=== PATIENT | male | born 1955 | race Caucasian/White ===

== ENCOUNTER → 2023-07-11 11:09 | Outpatient (BNVA) | payer MEDICARE, OTHER, SELFPAY | PROVIDERS: Family Provider Electrodiagnostic Medicine; PCP Electrodiagnostic Medicine; Visit Provider Family Medicine | DX: R60.0 Localized edema (principal); M10.9 Gout, unspecified; I10 Essential (primary) hypertension | CPT/HCPCS: 80053; 80061; 81000; 84439; 84443; 84550; 85025 ==

== ENCOUNTER 2023-07-24 09:29 | Outpatient (CLI) | payer MEDICARE, SELFPAY ==
--- NOTE | 2023-07-24 09:15 | USCV_ITS ---
Neymar Osborne (Tom Bean) Age: 68 Gender: M : 1955 Exam Date: 07/24/2023 09:52 Ordering Phys: Pavan Alcantar MD Technologist: GALILEA [place] [facility] [place]: EDE[place] BP: 136 / 90 HR: 105 Rhythm: Sinus Technical Quality: Poor because of body habitus MEASUREMENTS (Male / Female) Normal Values 2D ECHO LVOT Diameter 2.0 cm LV Ejection Fraction MOD 2C 41.7 % LV Ejection Fraction 2C AL 46.2 % LA Diameter 3.7 cm LA Width 3.4 cm LA Height 4.7 cm RA Width 3.3 cm RA Height 4.8 cm Aorta at Sinotubular Diameter 2.6 cm IVC Diameter 1.7 cm M-MODE Aortic Annulus Diameter 3.4 cm LA Ao Ratio MM 1.1 MV E Point Septal Separation 0.4 cm DOPPLER AV Peak Velocity 143.0 cm/s LVOT Peak Velocity 130.0 cm/s AV Area Cont Eq vti 2.6 cm squared AV Area Cont Eq pk 2.9 cm squared MV Peak Velocity 182.0 cm/s MV Area PHT 5.9 cm squared Mitral E to A Ratio 0.7 MV E' Velocity 43.6 cm/s Mitral E to MV E' Ratio 11.6 Mitral E to LV E' Lateral Ratio 8.6 Mitral E to LV E' Septal Ratio 17.4 TR Peak Velocity 157.3 cm/s TR Peak Gradient 9.9 mmHg TR Mean Velocity 127.8 cm/s TR Mean Gradient 6.7 mmHg TR Velocity Time Integral 35.7 cm TV Peak E Velocity 49.0 cm/s Right Atrial Pressure 3.0 mmHg Pulmonary Artery Systolic Pressu 12.9 mmHg PV Peak Velocity 134.0 cm/s RV Acceleration Time 0.1 s RV Ejection Time 0.3 s RV AcT/ET 0.4 FINDINGS Left Ventricle Normal left ventricular size, systolic function and wall thickness, with no regional wall motion abnormalities. Right Ventricle Normal right ventricular size and systolic function. Right Atrium Normal right atrial size. Left Atrium Normal left atrial size. Mitral Valve Thickened mitral valve. Trace mitral valve regurgitation. Aortic Valve Thickened aortic valve. No aortic valve stenosis. No aortic valve regurgitation. Tricuspid Valve Tricuspid valve not well visualized. Mild tricuspid valve regurgitation. Pulmonic Valve Pulmonic valve not well visualized. Mild pulmonary valve regurgitation. Pericardium No pericardial effusion. Aorta Normal size aortic root and proximal ascending aorta. IVC Normal IVC dimension with >50% respiratory change of the inferior vena cava. CONCLUSIONS Technically difficult study. Poor quality images. Patient refused contrast. 1. LV functions appear to be normal. LVEF 60%. 2. Although valvular structures not well-seen however on Doppler study no significant functional abnormality noted. 3. RV function and pulmonary pressures appear to be normal. Richard Tatum MD (Electronically Signed) Final Date: 24 July 2023 15:06 S
== END 2023-07-24 09:30 | disposition home or self-care (01) ==
LOC: RAD 09:29
PROVIDERS: Family Provider Electrodiagnostic Medicine; PCP Electrodiagnostic Medicine; Visit Provider Family Medicine
DX: R60.0 Localized edema (principal); I10 Essential (primary) hypertension; I34.0 Nonrheumatic mitral (valve) insufficiency; I37.1 Nonrheumatic pulmonary valve insufficiency
CPT/HCPCS: 93306

== ENCOUNTER → 2024-02-20 11:40 | Outpatient (BNVA) | payer MEDICARE, OTHER, SELFPAY | PROVIDERS: Family Provider Electrodiagnostic Medicine; PCP Family Medicine; Visit Provider Family Medicine | DX: I10 Essential (primary) hypertension (principal); M1A.2710 Drug-induced chronic gout, right ankle and foot, without tophus (tophi); E78.5 Hyperlipidemia, unspecified | CPT/HCPCS: 80053; 80061; 84550 ==

== ENCOUNTER → 2024-09-22 10:29 | Outpatient (BNVA) | payer MEDICARE, OTHER, SELFPAY | PROVIDERS: Family Provider Electrodiagnostic Medicine; PCP Family Medicine; Visit Provider Family Medicine | DX: E78.2 Mixed hyperlipidemia (principal) | CPT/HCPCS: 80053; 80061; 85025 ==

== ENCOUNTER 2024-10-16 20:52 | Inpatient (IN) | payer MEDICARE, OTHER, SELFPAY ==
[2024-10-16] VITALS (13 sets, daily range): BP systolic 142–171; BP diastolic 77–109; PULSE 104–128; RESP 16–31; TEMP 36.9; O2SAT 91–95; BMI 35.5
--- NOTE | 2024-10-16 21:00 | ECG_ITS ---
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1955 Requested By: Fernando Calderon Order Number: [id number] Reading MD: DAVIS BURNS Measurements Intervals [place] Rate: 114 P: 37 OR: 198 QRS: 36 QRSD: 90 T: 28 QT: 310 QTc: 429 Interpretive Statements SINUS TACHYCARDIA WITH OCCASIONAL SUPRAVENTRICULAR PREMATURE COMPLEXES POSSIBLE LEFT ATRIAL ENLARGEMENT [-0.1mV P-WAVE IN V1/V2] POSSIBLE RIGHT VENTRICULAR CONDUCTION DELAY [RSR (QR) IN V1/V2] NONSPECIFIC ST & T-WAVE ABNORMALITY ABNORMAL RHYTHM ECG No previous ECG available for comparison Electronically Signed On 10-17-2024 19:16:25 TRANSLITERATOR by DAVIS BURNS [email or web address]
--- NOTE | 2024-10-16 21:10 | XRR_ITS ---
PROCEDURE INFORMATION: Exam: XR Chest Exam date and time: 10/16/2024 9:41 PM Age: 69 years old Clinical indication: Shortness of breath; C/O SOB TECHNIQUE: Imaging protocol: Radiologic exam of the chest. Views: 1 view. COMPARISON: No relevant prior studies available. FINDINGS: Lungs: Mild patchy bibasilar opacities especially in the left lung base, likely due to atelectatic change or less likely pneumonitis. No focal consolidation otherwise. Pleural spaces: Unremarkable. No pleural effusion. No pneumothorax. Heart/Mediastinum: Cardiac silhouette is magnified by portable technique, likely borderline enlarged. Bones/joints: Unremarkable. XR/XR chest 1V portable [id number] IMPRESSION: Probable mild cardiomegaly without overt CHF. Mild left basilar opacity due to atelectasis versus pneumonitis in the appropriate clinical setting.
[2024-10-16 21:32] LABS: Basophils % 0.1 %; Eosinophils # 0.1 10^3/uL (0.0-0.8); Eosinophils % 0.9 %; Hematocrit 37.6 % (37-53); Lymphocytes % 5.9 %; Mean Corpuscular HGB Conc 37.2 g/dL (30-55); Mean Corpuscular Hemoglobin 32.1 pg (27-33); Mean Corpuscular Volume 86.2 fl (82-101); Mean Platelet Volume 9.3 fL (7.4-10.4); Monocytes # 0.7 10^3/uL (0.2-0.9); Monocytes % 4.4 %; Neutrophils % 88.4 %; Nucleated Red Blood Cells % 0 %; Platelet Count 416 10^3/cmm (157-399); Red Blood Count 4.36 10^6/uL (3.85-5.65); Red Cell Distribution Width 12.3 % (12.1-15.1); White Blood Count 16.28 10^3/uL (3.29-11.43)
[2024-10-16 21:43] LABS: D Dimer 0.28 ug/mLFEU (0-0.59)
[2024-10-16 21:50] LABS: Alanine Aminotransferase 14 U/L (0-41); Albumin Level 4.2 g/dL (3.5-5.2); Alkaline Phosphatase 148 U/L (40-130); Anion Gap 23.2 (5-19); Aspartate Amino Transferase 16 U/L (0-40); Blood Urea Nitrogen 10 mg/dL (8-23); Calcium 9.4 mg/dL (8.5-10.5); Carbon Dioxide 23 mmol/L (22-29); Chloride 71 mmol/L (98-107); Creatinine Clr Calc Pharmacy 95.0299; Glomerular Filtration Rate 111.5 mL/min (90-130); Glucose 97 mg/dL (65-115); Osmolality Calculated 237 mOsm/kg (285-295); Potassium 3.2 mmol/L (3.5-5.1); Total Bilirubin 1.1 mg/dL (0.15-1.2); Total Protein 7.2 g/dL (6.6-8.7); Troponin(5th) Baseline 20 ng/L (0-15)
[2024-10-16 21:54] LABS: Sodium 114 mmol/L (136-145)
[2024-10-16 22:09] LABS: NT Pro B Type Natriuretic Pept 297 pg/mL (0-125)
[2024-10-16 22:34] LABS: Influenza A NEGATIVE (Negative); Influenza B NEGATIVE (Negative); Respiratory Syncytial Virus Ce NEGATIVE (Negative); SARS-CoV-2 PCR NEGATIVE (Negative)
[2024-10-16 22:46] LABS: Sodium 114 mmol/L (136-145)
--- NOTE | 2024-10-16 23:02 | PM.HP ---
Providers/Chief Complaint Primary Care Provider: Pavan Alcantar MD Chief Complaint: SOB History of Present Illness Neymar Osborne (Casey) is a 69 year old male with a past medical history significant for insomnia, benign prostatic hypertrophy, hyperlipidemia, marijuana use, alcohol use disorder with abuse, dyslipidemia, and multiple other comorbidities who presents to the emergency department with shortness of breath, generalized malaise and weakness. Patient reports symptoms for 2 to 3 days. Exertion worsens symptoms. Rest improves. In the emergency department, patient was found to have severe hyponatremia with sodium of 114. Reports that he does take trazodone, Paxil, hydrochlorothiazide and Lasix. Reports decreased oral intake. Reports he drinks about 6 beers per day. Review of Systems Narrative: A complete review of systems was obtained and is negative except as stated in HPI. Medications/Allergies Home Medications ?Medication ?Instructions ?Recorded ?Confirmed ?Last Taken ?Type atorvastatin 40 mg tablet (Lipitor) 40 mg PO DAILY #90 tabs 01/31/24 09/22/24 Unknown Rx furosemide 40 mg tablet (Lasix) 40 mg PO QAM #90 tabs 01/31/24 09/22/24 Unknown Rx tamsulosin 0.4 mg capsule 0.4 mg PO DAILY #90 caps 01/31/24 09/22/24 Unknown Rx paroxetine HCl 40 mg tablet 40 mg PO DAILY #90 tabs 05/19/24 09/22/24 Unknown Rx potassium chloride 20 mEq 20 meq PO DAILY #90 tabs 05/19/24 09/22/24 Unknown Rx tablet,extended release allopurinol 300 mg tablet 300 mg PO DAILY #90 tabs 09/08/24 09/22/24 Unknown Rx trazodone 50 mg tablet 50 mg PO DAILY #90 tabs 09/22/24 09/22/24 Unknown Rx amlodipine 10 mg tablet (Norvasc) 10 mg PO DAILY #90 tabs 10/02/24 Unknown Rx hydrochlorothiazide 25 mg tablet 25 mg PO QAM #90 tabs 10/02/24 Unknown Rx metoprolol tartrate 50 mg tablet 50 mg PO DAILY #90 tabs 10/02/24 Unknown Rx (Lopressor) Allergies Allergy/AdvReac Type Severity Reaction Status Date / Time No Known Allergies Allergy Verified 09/22/24 09:38 PFSH Acute PFSH: Medical History Benign prostate hyperplasia Alcohol use disorder, moderate, dependence Dyslipidemia Chronic back pain Moderate major depression Anxiety Hypertension Herniated vertebral disc x4 Gout Surgical History History of surgery on lower extremity Family History Other Hyperlipidemia Hypertension Denies family history of Liver disease Diabetes CAD (coronary artery disease) Autoimmune disease Clotting disorder Dementia Heart disease Hyperthyroidism Hypothyroidism Psychiatric illness Chronic kidney disease (CKD) Bleeding disorder Lung disease Cancer Stroke Social History Smoking and tobacco/nicotine status: never used tobacco/nicotine Alcohol intake: current Alcohol intake frequency: 3 or more drinks per day Alcohol type: beer Substance/Drug Use: current Substance/Drug use frequency: daily Lives independently: Yes Current occupational status: disabled Special vidhi needs: No Vitals/I&O/Wt Last Vital Signs Temp 98.4 F 10/16/24 20:57 Pulse 123 H 10/16/24 21:15 Resp 27 H 10/16/24 21:15 BP 147/84 10/16/24 21:15 Pulse Ox 91 10/16/24 21:15 10/16/24 10/16/24 10/17/24 14:59 22:59 06:59 Intake Total 0 / 0 Balance 0 / 0 Weight last 48 hrs Weight 99.79 kg Physical Exam Narrative: General: Patient is awake. Ill-appearing. Head: Normocephalic. Atraumatic. EOM intact. Dry mucous membranes. Neck: No JVD. Cardiovascular: No gallops. No murmurs. Tachycardic. Lungs: Breath sounds diminished bilateral bases, no use of accessory muscles, no crackles or wheezes. Tachypneic. Skin: No jaundice. No rashes. Abdomen: Normal bowel sounds, abdomen soft and nontender. Extremities: No cyanosis or clubbing. Musculoskeletal: No swollen or erythematous joints. Neurological: Moves all 4 extremities. No myoclonus. Data 10/16/24 21:16 10/16/24 21:16 A&P Assessment and plan (1) Acute hyponatremia: Severe acute on chronic hyponatremia Suspect multifactorial Hold antidepressants-Paxil, trazodone Hold diuretics-Lasix, hydrochlorothiazide Start aggressive NS infusion for volume resuscitation Start trending sodium, if initial response to volume repletion does not correct sodium above 120 will proceed to hypertonic Avoid overcorrection Strict I's and O's Check TSH, urine electrolytes Seizure precautions Serial neurological exams (2) Severe dehydration: Severe dehydration with severe hyponatremia, hypochloremia Start aggressive fluid resuscitation Follow-up urine (3) Hypokalemia: Telemetry monitoring Replace potassium Check magnesium (4) Alcohol use disorder, moderate, dependence: [facility] protocol (5) Abnormal chest x-ray: Chest x-ray with suspected atelectasis versus possible pneumonitis Check procalcitonin and CRP, bacterial antigens Cover with ceftriaxone/azithromycin for now (6) Hypertension: Hold diuretics due to hyponatremia Hydralazine as needed Qualifiers: Hypertension type: primary hypertension Qualified Code(s): I10 - Essential (primary) hypertension (7) Gout: Continue allopurinol Qualifiers: Gout site: ankle Gout etiology: drug-induced Chronicity: chronic Laterality: right Presence of tophus: without tophus Qualified Code(s): M1A.2710 - Drug-induced chronic gout, right ankle and foot, without tophus (tophi) (8) Benign prostate hyperplasia: Continue home Flomax Plan DVT prophylaxis: Lovenox PDMP PDMP Reviewed: Not Reviewed Attestations Medical Necessity Statement*: Patient presents with severe life-threatening hypotension among several other electrolyte imbalances with expected hospitalization to cross 2 midnights for further workup, intensive care, serial labs, IV fluids, IV antibiotics, and treatment. 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
--- NOTE | 2024-10-16 23:18 | W.ED.GENADLT ---
HPI - General Adult General: Chief complaint: Shortness of Breath/Dyspnea Stated complaint: SOB Time Seen by Provider: 10/16/24 20:55 History of Present Illness: This patient is a 69-year-old white male who presents to the emergency department stating that he is just not feeling well today. He has had a nonproductive cough. He has been mildly short of breath. Has not had a fever. No nausea, vomiting or diarrhea. No chest pain. Past medical history includes hypertension. Associated symptoms: Reports dyspnea and malaise Related Data Previous Rx's ?Medication ?Instructions ?Recorded atorvastatin 40 mg tablet (Lipitor) 40 mg PO DAILY #90 tabs 01/31/24 furosemide 40 mg tablet (Lasix) 40 mg PO QAM #90 tabs 01/31/24 tamsulosin 0.4 mg capsule 0.4 mg PO DAILY #90 caps 01/31/24 paroxetine HCl 40 mg tablet 40 mg PO DAILY #90 tabs 05/19/24 potassium chloride 20 mEq 20 meq PO DAILY #90 tabs 05/19/24 tablet,extended release allopurinol 300 mg tablet 300 mg PO DAILY #90 tabs 09/08/24 trazodone 50 mg tablet 50 mg PO DAILY #90 tabs 09/22/24 amlodipine 10 mg tablet (Norvasc) 10 mg PO DAILY #90 tabs 10/02/24 hydrochlorothiazide 25 mg tablet 25 mg PO QAM #90 tabs 10/02/24 metoprolol tartrate 50 mg tablet 50 mg PO DAILY #90 tabs 10/02/24 (Lopressor) Allergies Allergy/AdvReac Type Severity Reaction Status Date / Time No Known Allergies Allergy Verified 09/22/24 09:38 Review of Systems General: Reports: 10 or more systems reviewed and unremarkable except in HPI and below Const: Reports: malaise Resp: Reports: dyspnea and non-productive cough PFSH ED PFSH: Medical History Benign prostate hyperplasia Alcohol use disorder, moderate, dependence Dyslipidemia Chronic back pain Moderate major depression Anxiety Hypertension Herniated vertebral disc x4 Gout Surgical History History of surgery on lower extremity Family History Other Hyperlipidemia Hypertension Denies family history of Liver disease Diabetes CAD (coronary artery disease) Autoimmune disease Clotting disorder Dementia Heart disease Hyperthyroidism Hypothyroidism Psychiatric illness Chronic kidney disease (CKD) Bleeding disorder Lung disease Cancer Stroke Social History Smoking and tobacco/nicotine status: never used tobacco/nicotine Alcohol intake: current Alcohol intake frequency: 3 or more drinks per day Alcohol type: beer Substance/Drug Use: current Substance/Drug use frequency: daily Lives independently: Yes Current occupational status: disabled Special vidhi needs: No Physical Exam Const: COMMON NORMALS: no acute distress, patient oriented x3 and no limitations GENERAL APPEARANCE: cooperative and comfortable HENMT: COMMON NORMALS: normocephalic, atraumatic, Normal nasal mucous membranes and turbinates present, moist oral mucous membranes and oropharynx normal HEAD & SCALP: normal to inspection, normocephalic and atraumatic FACE & SINUS: normal facial exam NOSE: Normal nasal mucous membranes and turbinates present Eye: COMMON NORMALS: Equal, round and reactive pupils present, EOMs intact bilaterally and conjunctivae normal GENERAL EYE: appearance normal, both eyes and all related structures CONJUNCTIVA: Yes conjunctivae normal PUPIL: Yes Equal, round and reactive pupils present Neck/C-Spine: COMMON NORMALS: supple and no JVD Chest: COMMONS NORMALS: normal inspection of the chest Resp: COMMON NORMALS: normal respiratory effort and clear to auscultation bilaterally AUSCULTATION: clear to auscultation bilaterally Cardio: COMMON NORMALS: no JVD, regular rate, regular rhythm, No gallops present (Cardio), No murmurs present (Cardio) and No rub (Cardio) RATE: regular rate RHYTHM: regular rhythm GI: COMMON NORMALS: Normal to inspection, nondistended, normoactive bowel sounds present, Soft to palpation and non-tender AUSCULTATION: Yes normoactive bowel sounds PALPATION: Yes Soft to palpation : COMMON NORMALS: Yes no CVA tenderness BLADDER/KIDNEY EXAM: Yes no CVA tenderness Back/Pelvis: COMMON NORMALS: no CVA tenderness and thoracic and lumbar spine normal to inspection Extremity: COMMON NORMALS: normal to inspection Neuro: COMMON NORMALS: patient oriented x3 and CN's II-XII intact bilaterally Psych: COMMON NORMALS: mental status grossly normal, Normal thought process present and cooperative THOUGHT PROCESS: Normal thought process present Skin: COMMON NORMALS: no rashes or lesions noted, turgor normal and no jaundice GENERAL SKIN EXAM: no rashes or lesions noted and turgor normal Course Vital Signs: Vital signs: Vital Signs Temperature 98.4 F 10/16/24 20:57 Pulse Rate 123 H 10/16/24 21:15 Respiratory Rate 27 H 10/16/24 21:15 Blood Pressure 147/84 10/16/24 21:15 Pulse Oximetry 91 10/16/24 21:15 MDM - General Adult Medical Decision Making RSV, COVID and influenza negative. CBC revealed a white blood cell count of 16.3. CMP revealed a sodium of 114 and that was repeated with a redraw and it was again 114. Troponin 20. BNP 297. D-dimer 0.28. EKG did not reveal any acute ST segment abnormalities. Chest x-ray revealed some cardiomegaly. No pleural effusions. Questionable pneumonitis left lower lobe. Patient will need to be admitted due to the severe hyponatremia. Patient is on Lasix and hydrochlorothiazide. I discussed the case with Dr. Kendall. He did accept the admission. Patient will be transferred to the ICU shortly. He is stable. Lab Data 10/16/24 21:16 10/16/24 21:16 Radiology Impressions Chest X-Ray 10/16/24 21:10 IMPRESSION: Probable mild cardiomegaly without overt CHF. Mild left basilar opacity due to atelectasis versus pneumonitis in the appropriate clinical setting. Laboratory Results WBC 16.28 10^3/uL (3.29-11.43) H 10/16/24 21:16 RBC 4.36 10^6/uL (3.85-5.65) 10/16/24 21:16 Hgb 14.00 g/dL (11.27-16.99) 10/16/24 21:16 Hct 37.6 % (37-53) 10/16/24 21:16 MCV 86.2 fl (82-101) 10/16/24 21:16 MCH 32.1 pg (27-33) 10/16/24 21:16 MCHC 37.2 g/dL (30-55) 10/16/24 21:16 RDW 12.3 % (12.1-15.1) 10/16/24 21:16 Plt Count 416 10^3/cmm (157-399) H 10/16/24 21:16 MPV 9.3 fL (7.4-10.4) 10/16/24 21:16 Neut % (Auto) 88.4 % 10/16/24 21:16 Lymph % (Auto) 5.9 % 10/16/24 21:16 Faulk % (Auto) 4.4 % 10/16/24 21:16 Eos % (Auto) 0.9 % 10/16/24 21:16 Baso % (Auto) 0.1 % 10/16/24 21:16 Neut # (Auto) 14.40 10^3/uL (1.8-7.7) H 10/16/24 21:16 Lymph # (Auto) 1.0 10^3/uL (0.8-4.8) 10/16/24 21:16 Faulk # (Auto) 0.7 10^3/uL (0.2-0.9) 10/16/24 21:16 Eos # (Auto) 0.1 10^3/uL (0.0-0.8) 10/16/24 21:16 Baso # (Auto) 0.0 10^3/uL (0.0-0.1) 10/16/24 21:16 Nucleated RBC % (auto) 0 % 10/16/24 21:16 Nucleated RBCs # 0.0 /100WBC 10/16/24 21:16 D-Dimer 0.28 ug/mLFEU (0-0.59) 10/16/24 21:16 Sodium 114 mmol/L (136-145) L* 10/16/24 21:16 Sodium 114 mmol/L (136-145) L* 10/16/24 21:16 Potassium 3.2 mmol/L (3.5-5.1) L 10/16/24 21:16 Chloride 71 mmol/L (98-107) L 10/16/24 21:16 Carbon Dioxide 23 mmol/L (22-29) 10/16/24 21:16 Anion Gap 23.2 (5-19) H 10/16/24 21:16 BUN 10 mg/dL (8-23) 10/16/24 21:16 Creatinine 0.7 mg/dL (0.7-1.2) 10/16/24 21:16 GFR Calculation 111.5 mL/min (90-130) 10/16/24 21:16 Glucose 97 mg/dL (65-115) 10/16/24 21:16 Calculated Osmolality 237 mOsm/kg (285-295) L 10/16/24 21:16 Calcium 9.4 mg/dL (8.5-10.5) 10/16/24 21:16 Total Bilirubin 1.1 mg/dL (0.15-1.2) 10/16/24 21:16 AST 16 U/L (0-40) 10/16/24 21:16 ALT 14 U/L (0-41) 10/16/24 21:16 Alkaline Phosphatase 148 U/L (40-130) H 10/16/24 21:16 Troponin T Baseline 20 ng/L (0-15) H 10/16/24 21:16 NT-Pro-B Natriuret Pep 297 pg/mL (0-125) H 10/16/24 21:16 Total Protein 7.2 g/dL (6.6-8.7) 10/16/24 21:16 Albumin 4.2 g/dL (3.5-5.2) 10/16/24 21:16 Globulin 3.0 g/dL (1.3-4.6) 10/16/24 21:16 Coronavirus (PCR) Negative (Negative) 10/16/24 21:21 Influenza A (PCR) Negative (Negative) 10/16/24 21:21 Influenza Type B (PCR) Negative (Negative) 10/16/24 21:21 RSV (PCR) Negative (Negative) 10/16/24 21:21 All radiology interpretation(s) finalized by discharge Discharge Plan Discharge Patient Disposition: Admitted As Inpatient Clinical Impression: Acute hyponatremia Condition: Stable Coding Level of Care Code ED Electronic Induction Hardener for Valencia Mejias
[2024-10-16 23:51] LABS: Troponin 5 2HR 18.18 ng/L (0-15)
[2024-10-16 23:52] LABS: Troponin 5 2HR Delta -1.82 ABS# (0-10)
[2024-10-17] VITALS (55 sets, daily range): BP systolic 110–166; BP diastolic 55–101; PULSE 75–122; RESP 15–30; TEMP 36.9–37.4; O2SAT 88–96; BMI 35.0
[2024-10-17 00:18] LABS: Alcohol Level < 10 mg/dL (0-10)
[2024-10-17 00:25] LABS: C Reactive Protein 18.9 mg/L (0.0-4.9); Magnesium 1.5 mg/dL (1.7-2.3)
[2024-10-17] MEDS: sodium chloride 0.9% 1,000 ML 999 ML IV (01:07)
[2024-10-17] MEDS: potassium chloride ER 20 mEq Tablet 40 MEQ PO ×2 (01:07→05:50)
[2024-10-17] MEDS: cefTRIAXone 1,000 mg SDV 1000 MG IVP (02:00)
[2024-10-17] MEDS: enoxaparin 40 mg/0.4 mL Syringe SUBCUT (02:02)
[2024-10-17] MEDS: AZITHROMYCIN ADD-Vantage 500 MG in 0.9% NaCl ADD-Vantage 250 ML 250 MG IV (02:02)
[2024-10-17] MEDS: lidocaine 2% Urojet 20 mL TOPICAL (03:25)
[2024-10-17 03:33] LABS: Potassium, Radom Urine 13 mmol/L; Urine Random Sodium 20 mmol/L
[2024-10-17 03:36] LABS: Urine Random Chloride 12 mmol/L
[2024-10-17] MEDS: pantoprazole 40 mg SDV IVP ×2 (04:20→16:39)
[2024-10-17] MEDS: magnesium sulfate premix 2 GM/50 ML PIGGYBACK IV (04:20)
[2024-10-17 05:11] LABS: Creatinine Urine, Random 25 mg/dL (39-259)
[2024-10-17 05:38] LABS: Basophils % 0.2 %; Eosinophils # 0.2 10^3/uL (0.0-0.8); Eosinophils % 1.1 %; Hematocrit 34.1 % (37-53); Lymphocytes # 0.8 10^3/uL (0.8-4.8); Lymphocytes % 6.3 %; Mean Corpuscular HGB Conc 36.7 g/dL (30-55); Mean Corpuscular Hemoglobin 32.1 pg (27-33); Mean Corpuscular Volume 87.7 fl (82-101); Mean Platelet Volume 9.2 fL (7.4-10.4); Monocytes % 7.4 %; Neutrophils % 84.6 %; Nucleated Red Blood Cells % 0 %; Platelet Count 310 10^3/cmm (157-399); Red Blood Count 3.89 10^6/uL (3.85-5.65); Red Cell Distribution Width 12.5 % (12.1-15.1); White Blood Count 13.12 10^3/uL (3.29-11.43)
[2024-10-17 06:03] LABS: Magnesium 1.6 mg/dL (1.7-2.3)
[2024-10-17 06:06] LABS: Anion Gap 16.8 (5-19); Blood Urea Nitrogen 8 mg/dL (8-23); Calcium 8.4 mg/dL (8.5-10.5); Carbon Dioxide 26 mmol/L (22-29); Chloride 79 mmol/L (98-107); Creatinine Clr Calc Pharmacy 94.3688; Glomerular Filtration Rate 164.4 mL/min (90-130); Glucose 91 mg/dL (65-115); Osmolality Calculated 246 mOsm/kg (285-295); Thyroid Stimulating Hormone 2.01 uIU/mL (0.27-4.20)
[2024-10-17 06:19] LABS: Potassium 2.8 mmol/L (3.5-5.1); Sodium 119 mmol/L (136-145)
[2024-10-17 07:00] LABS: Alanine Aminotransferase 12 U/L (0-41)
[2024-10-17 07:17] LABS: Albumin Level 3.6 g/dL (3.5-5.2); Alkaline Phosphatase 124 U/L (40-130); Aspartate Amino Transferase 19 U/L (0-40); Globulin 2.5 g/dL (1.3-4.6); Total Protein 6.1 g/dL (6.6-8.7)
[2024-10-17 07:27] LABS: Anion Gap 17.2 (5-19); Blood Urea Nitrogen 8 mg/dL (8-23); Calcium 8.7 mg/dL (8.5-10.5); Carbon Dioxide 26 mmol/L (22-29); Chloride 79 mmol/L (98-107); Glomerular Filtration Rate 133.2 mL/min (90-130); Glucose 106 mg/dL (65-115); Osmolality Calculated 247 mOsm/kg (285-295); Potassium 3.2 mmol/L (3.5-5.1)
[2024-10-17 07:28] LABS: Creatinine Clr Calc Pharmacy 94.3688
[2024-10-17 07:29] LABS: Sodium 119 mmol/L (136-145)
[2024-10-17] MEDS: thiamine 100 mg Tablet PO (08:15)
[2024-10-17] MEDS: atorvastatin 40 mg Tablet PO (08:15)
[2024-10-17] MEDS: multivitamin therapeutic Tablet 1 TAB PO (08:15)
[2024-10-17] MEDS: tamsulosin 0.4 mg Capsule PO (08:15)
[2024-10-17] MEDS: folic acid 1 mg Tablet PO (08:15)
[2024-10-17] MEDS: metoprolol tartrate 50 mg Tablet PO (08:15)
[2024-10-17] MEDS: allopurinol 300 mg Tablet PO (08:15)
--- NOTE | 2024-10-17 08:51 | PC.PHAR ---
Pt was unable to verify his medications in the room. Phoned [facility] and spoke to [facility] Alix, who verified current medications,.
[2024-10-17 10:03] LABS: Hematocrit 36.1 % (37-53)
[2024-10-17 10:29] LABS: Anion Gap 16.4 (5-19); Blood Urea Nitrogen 7 mg/dL (8-23); Calcium 8.7 mg/dL (8.5-10.5); Carbon Dioxide 26 mmol/L (22-29); Chloride 80 mmol/L (98-107); Creatinine Clr Calc Pharmacy 94.3688; Glomerular Filtration Rate 133.2 mL/min (90-130); Glucose 102 mg/dL (65-115); Osmolality Calculated 246 mOsm/kg (285-295); Potassium 3.4 mmol/L (3.5-5.1)
[2024-10-17 10:35] LABS: Sodium 119 mmol/L (136-145)
--- NOTE | 2024-10-17 14:55 | PM.CONSULT ---
Providers/Reason For Consult Consulting Physician/Specialty*: kommana/Nephrology Reason for Consult*: Hyponatremia Attending Physician: Jonelle Foster Primary Care Provider: Pavan Alcantar MD History of Present Illness History of Present Illness Neymar KhoayMarycruz Jhonatan Osborne is a 69 year old male Patient is a 69-year-old male with past medical history significant for dyslipidemia alcohol use, hypertension, BPH presented to the emergency department due to generalized malaise weakness and shortness of breath. Lab data in the ER showed severe hyponatremia with a sodium of 114 on presentation. Patient was taking hydrochlorothiazide Lasix. SSRI , Trazadone at home. Pt admitted to ICU and getting BMP q 4 hours. Most recent Cr is 119. CXR with ? pneumonitis Review of Systems Narrative: negative Medications/Allergies Home Medications ?Medication ?Instructions ?Recorded ?Confirmed ?Last Taken ?Type atorvastatin 40 mg tablet (Lipitor) 40 mg PO DAILY #90 tabs 01/31/24 10/17/24 Unknown Rx furosemide 40 mg tablet (Lasix) 40 mg PO QAM #90 tabs 01/31/24 10/17/24 Unknown Rx tamsulosin 0.4 mg capsule 0.4 mg PO DAILY #90 caps 01/31/24 10/17/24 Unknown Rx paroxetine HCl 40 mg tablet 40 mg PO DAILY #90 tabs 05/19/24 10/17/24 Unknown Rx potassium chloride 20 mEq 20 meq PO DAILY #90 tabs 05/19/24 10/17/24 Unknown Rx tablet,extended release allopurinol 300 mg tablet 300 mg PO DAILY #90 tabs 09/08/24 10/17/24 Unknown Rx trazodone 50 mg tablet 50 mg PO DAILY #90 tabs 09/22/24 10/17/24 Unknown Rx amlodipine 10 mg tablet (Norvasc) 10 mg PO DAILY #90 tabs 10/02/24 10/17/24 Unknown Rx hydrochlorothiazide 25 mg tablet 25 mg PO QAM #90 tabs 10/02/24 10/17/24 Unknown Rx metoprolol tartrate 50 mg tablet 50 mg PO DAILY #90 tabs 10/02/24 10/17/24 Unknown Rx (Lopressor) Allergies Allergy/AdvReac Type Severity Reaction Status Date / Time No Known Allergies Allergy Verified 09/22/24 09:38 Current Medications Generic Name Dose Route Start Last Admin Trade Name Freq PRN Reason Stop Dose Admin Allopurinol 300 mg 10/17/24 09:00 10/17/24 08:15 Allopurinol 300 Mg Tablet PO 300 mg DAILY TILA Administration Atorvastatin Calcium 40 mg 10/17/24 09:00 10/17/24 08:15 Atorvastatin 40 Mg Tablet PO 40 mg DAILY TILA Administration Ceftriaxone Sodium 1,000 mg 10/17/24 00:57 10/17/24 02:00 Ceftriaxone 1,000 Mg Sdv IVP 1,000 mg Q24H TILA Administration Protocol Enoxaparin Sodium 40 mg 10/17/24 00:57 10/17/24 02:02 Enoxaparin 40 Mg/0.4 Ml Syringe SUBCUT 40 mg Q24H TILA Administration Folic Acid 1 mg 10/17/24 09:00 10/17/24 08:15 Folic Acid 1 Mg Tablet PO 1 mg DAILY TILA Administration Azithromycin 500 mg/ Sodium 250 mls @ 250 mls/hr 10/17/24 00:57 10/17/24 03:26 Chloride IV Infused Q24H TILA Infusion Protocol Metoprolol Tartrate 50 mg 10/17/24 09:00 10/17/24 08:15 Metoprolol Tartrate 50 Mg Tablet PO 50 mg DAILY TILA Administration Multivitamins Therapeutic 1 tab 10/17/24 09:00 10/17/24 08:15 Multivitamin Therapeutic Tablet PO 1 tab DAILY TILA Administration Pantoprazole Sodium 40 mg 10/17/24 04:00 10/17/24 04:20 Pantoprazole 40 Mg Sdv IVP 40 mg Q12H TILA Administration Tamsulosin HCl 0.4 mg 10/17/24 09:00 10/17/24 08:15 Tamsulosin 0.4 Mg Capsule PO 0.4 mg DAILY TILA Administration Thiamine Mononitrate 100 mg 10/17/24 09:00 10/17/24 08:15 Thiamine 100 Mg Tablet PO 100 mg DAILY TILA Administration PFSH Acute PFSH: Medical History Benign prostate hyperplasia Alcohol use disorder, moderate, dependence Dyslipidemia Chronic back pain Moderate major depression Anxiety Hypertension Herniated vertebral disc x4 Gout Surgical History History of surgery on lower extremity Family History Other Hyperlipidemia Hypertension Denies family history of Liver disease Diabetes CAD (coronary artery disease) Autoimmune disease Clotting disorder Dementia Heart disease Hyperthyroidism Hypothyroidism Psychiatric illness Chronic kidney disease (CKD) Bleeding disorder Lung disease Cancer Stroke Social History Smoking and tobacco/nicotine status: never used tobacco/nicotine Alcohol intake: current Alcohol intake frequency: 3 or more drinks per day Alcohol type: beer Substance/Drug Use: current Substance/Drug use frequency: daily Lives independently: Yes Current occupational status: disabled Special vidhi needs: No Vitals/I&O/Wt Last Vital Signs Temp 99.4 F 10/17/24 07:30 Pulse 83 10/17/24 14:00 Resp 23 H 10/17/24 12:00 BP 129/83 10/17/24 12:00 Pulse Ox 94 10/17/24 12:00 O2 Del Method Room Air 10/17/24 12:00 O2 Flow Rate 2 10/17/24 08:45 10/16/24 10/17/24 10/17/24 22:59 06:59 14:59 Intake Total 0 / 0 1300 / 1300 Output Total 870 / 870 Balance 0 / 0 430 / 430 Weight last 48 hrs Weight 98.43 kg Weight 98.5 kg Weight 99.79 kg Physical Exam Narrative: awake a, lert PEERLA S1S2 RRR per report Lungs clear per report No edema Urinary Catheter Management: Hewitt: Cath Placed During This Visit: yes Reason for Continuing Indwelling Catheter: Acute Urinary Retention or Obstruction Urinary Catheter Date of Insertion: 10/17/24 Urinary Catheter Time of Insertion: 02:14 Data 10/17/24 09:46 10/17/24 14:46 Micro: Microbiology 10/17/24 02:30 Bacterial Antigens - Final Urine,Clean Catch 10/17/24 04:06 Occult Blood (FIT) - Final Stool Routine Collection A&P Assessment and plan (1) Hyponatremia: 1. Hyponatremia: Likely multifactorial in the setting of alcoholic liver disease and also secondary to meds-HCTZ and SSRI, poor solute intake -likely worsened now due to hypovolemia -Sodium 114 on presentation and currently at 119, goal to correct 6 to 8 mEq in 24 hours., Not to exceed 121 by tomorrow morning. Check urine sodium and urine osmolality. Holding HCTZ and do not restart at DC, can continue SSRI as it is a chronic medication. Place BMP every 4 hours ,on fluid restriction at 1500 mL/day. 2. ALlcoholic liver disease 3.Hypertension : HCTZ and Lasix are on hold, Bp stable in 120-130 range Patient evaluated using audiovisual cart. Time spent 40 minutes. PDMP PDMP Reviewed: Not Reviewed Consult Attestations Medical Necessity Statement: per bing Coding Level of Care Code Acute Code for Chg Fwd Diagnoses Hyponatremia E87.1
--- NOTE | 2024-10-17 15:09 | PC.NURSE ---
Dr. Mazariegos consulted patient and ordered for nursing staff to call if the patient's Sodium rises to 123 or above before this time 10/18/2024.
[2024-10-17 15:10] LABS: Anion Gap 13.6 (5-19); Blood Urea Nitrogen 6 mg/dL (8-23); Calcium 8.4 mg/dL (8.5-10.5); Carbon Dioxide 27 mmol/L (22-29); Chloride 83 mmol/L (98-107); Creatinine Clr Calc Pharmacy 94.3688; Glomerular Filtration Rate 133.2 mL/min (90-130); Glucose 109 mg/dL (65-115); Osmolality Calculated 248 mOsm/kg (285-295); Potassium 3.6 mmol/L (3.5-5.1); Sodium 120 mmol/L (136-145)
--- NOTE | 2024-10-17 15:27 | P.PN_ITS ---
Subjective 2 Subjective: 69-year-old with a past medical history of chronic back pain, insomnia, benign prostatic hyperplasia, hypertension, hyperlipidemia, cannabis use, and alcoholism who presented to the hospital with generalized weakness. He also noted shortness of breath for a few days prior to arrival, but denied any chest discomfort, recent fever, chills, nausea, or vomiting. Initial evaluation in the ER on 10/16/2024 revealed: - Laboratory Findings: WBC 16.2, hemoglo bin 14, hematocrit 37, platelets 416, sodium 114, potassium 3.2, chloride 71, bicarbonate 23, BUN 10, creatinine 0.7, magnesium 1.5, AST/ALT within normal limits, alkaline phosphatase 148, troponin T 20 (18 at 120 minutes), negative ETOH level, influenza A/COVID-19/RSV not detected. - Imaging Studies: Chest x-ray showed pr obable mild cardiomegaly without overt signs of heart failure exacerbation and a mild left basilar opacity (atelectasis vs pneumonitis). He was started on ceftriaxone and azithromycin for presumed pneumonia and given a normal saline bolus, after which his sodium improved to 119. Nephrology was consulted. Vitals/I&O/Wt Last Vital Signs Temp 99.4 F 10/17/24 07:30 Pulse 83 10/17/24 14:00 Resp 23 H 10/17/24 12:00 BP 129/83 10/17/24 12:00 Pulse Ox 94 10/17/24 12:00 O2 Del Method Room Air 10/17/24 12:00 O2 Flow Rate 2 10/17/24 08:45 10/17/24 10/17/24 10/17/24 06:59 14:59 22:59 Intake Total 1300 / 1300 Output Total 870 / 870 Balance 430 / 430 Weight last 48 hrs Weight 98.43 kg Weight 98.5 kg Weight 99.79 kg Physical Exam 2 Narrative: General: Patient is awake. Ill-appearing. Head: Normocephalic. Atraumatic. EOM intact. Dry mucous membranes. Neck: No JVD. Cardiovascular: No gallops. No murmurs. Tachycardic. Lungs: Breath sounds diminished bilateral bases, no use of accessory muscles, no crackles or wheezes. Tachypneic. Skin: No jaundice. No rashes. Abdomen: Normal bowel sounds, abdomen soft and nontender. Extremities: No cyanosis or clubbing. Musculoskeletal: No swollen or erythematous joints. Neurological: Moves all 4 extremities. No myoclonus. Urinary Catheter Management: Hewitt: Cath Placed During This Visit: yes Reason for Continuing Indwelling Catheter: Acute Urinary Retention or Obstruction Urinary Catheter Date of Insertion: 10/17/24 Urinary Catheter Time of Insertion: 02:14 Data 10/17/24 09:46 10/17/24 14:46 Micro: Microbiology 10/17/24 02:30 Bacterial Antigens - Final Urine,Clean Catch 10/17/24 04:06 Occult Blood (FIT) - Final Stool Routine Collection A&P Assessment and plan (1) Acute hyponatremia: (2) Severe dehydration: (3) Hypokalemia: (4) Alcohol use disorder, moderate, dependence: (5) Abnormal chest x-ray: (6) Hypertension: Qualifiers: Hypertension type: primary hypertension Qualified Code(s): I10 - Essential (primary) hypertension (7) Gout: Qualifiers: Chronicity: chronic Gout etiology: drug-induced Gout site: ankle L aterality: right Presence of tophus: without tophus Qualified Code(s): M 1A.2710 - Drug-induced chronic gout, right ankle and foot, without tophus (tophi) (8) Benign prostate hyperplasia: Plan Hyponatremia - Presenting sodium of 114, improved to 119 after normal saline bolus. Differential Diagnosis: 1. Hypovolemic hyponatremia due to poor oral intake. 2. Syndrome of inappropriate antidiuretic hormone secretion Plan: 1. Continue to moniotor off IVF 2. Fluid Restriction 4. BMP q4hr 5. Nephrology consulted . Pneumonia - Chest x-ray findings suggestive of left basilar pneumonitis. Plan: 1. Continue ceftriaxone and azithromycin. 2. Follow up on culture Chronic Medical Conditions - Chronic back pain, insomnia, benign prostatic hyperplasia, hypertension, hyperlipidemia. Plan: 1. Reviewed current management for each condition. PDMP PDMP Reviewed: Not Reviewed Attestations 2 Medical Necessity Statement*: Patient presents with severe life-threatening hypotension among several other electrolyte imbalances with expected hospitalization to cross 2 midnights for further workup, intensive care, serial labs, IV fluids, IV antibiotics, and treatment. 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
--- NOTE | 2024-10-17 17:14 | PC.NURSE ---
Report was given to Brenda in med surge. All belongings were sent with the patient. Patient was stable during transfer.
[2024-10-17 20:06] LABS: Anion Gap 11.4 (5-19); Blood Urea Nitrogen 8 mg/dL (8-23); Calcium 8.4 mg/dL (8.5-10.5); Carbon Dioxide 29 mmol/L (22-29); Chloride 86 mmol/L (98-107); Creatinine Clr Calc Pharmacy 94.3688; Glomerular Filtration Rate 133.2 mL/min (90-130); Glucose 106 mg/dL (65-115); Osmolality Calculated 255 mOsm/kg (285-295); Potassium 3.4 mmol/L (3.5-5.1); Sodium 123 mmol/L (136-145)
--- NOTE | 2024-10-17 20:39 | PC.NURSE ---
This nurse was informed during shift report to contact Dr. Mazariegos with sodium level at 123 or above. This nurse contacted the and was given an order for D5W at 50ml/hr for 6 hr.
[2024-10-17] MEDS: dextrose 5% 1,000 ML 50 ML IV (21:02)
[2024-10-18] VITALS (9 sets, daily range): BP systolic 122–150; BP diastolic 60–97; PULSE 74–98; RESP 17–19; TEMP 36.6–36.9; O2SAT 92–96
[2024-10-18 00:13] LABS: Anion Gap 16.4 (5-19); Blood Urea Nitrogen 7 mg/dL (8-23); Calcium 8.9 mg/dL (8.5-10.5); Carbon Dioxide 26 mmol/L (22-29); Chloride 86 mmol/L (98-107); Creatinine Clr Calc Pharmacy 94.3688; Glomerular Filtration Rate 133.2 mL/min (90-130); Glucose 95 mg/dL (65-115); Osmolality Calculated 258 mOsm/kg (285-295); Potassium 3.4 mmol/L (3.5-5.1); Sodium 125 mmol/L (136-145)
--- NOTE | 2024-10-18 00:42 | PC.NURSE ---
This nurse contacted Dr. Mazariegos with current lab results. Sodium of 125. No new orders at this time. Will continue to monitor.
[2024-10-18] MEDS: cefTRIAXone 1,000 mg SDV 1000 MG IVP (01:06)
[2024-10-18] MEDS: AZITHROMYCIN ADD-Vantage 500 MG in 0.9% NaCl ADD-Vantage 250 ML 250 MG IV (01:07)
[2024-10-18] MEDS: enoxaparin 40 mg/0.4 mL Syringe SUBCUT (01:07)
[2024-10-18] MEDS: pantoprazole 40 mg SDV IVP ×2 (03:25→15:39)
[2024-10-18 03:57] LABS: Anion Gap 15.1 (5-19); Blood Urea Nitrogen 7 mg/dL (8-23); Calcium 8.6 mg/dL (8.5-10.5); Carbon Dioxide 27 mmol/L (22-29); Chloride 87 mmol/L (98-107); Creatinine Clr Calc Pharmacy 94.3688; Glomerular Filtration Rate 133.2 mL/min (90-130); Glucose 103 mg/dL (65-115); Osmolality Calculated 260 mOsm/kg (285-295); Potassium 3.1 mmol/L (3.5-5.1); Sodium 126 mmol/L (136-145)
--- NOTE | 2024-10-18 05:29 | PC.NURSE ---
This nurse contacted Dr. Graves to update on patients sodium levels. No new orders at this time.
[2024-10-18 07:39] LABS: Blood Urea Nitrogen 6 mg/dL (8-23); Calcium 8.5 mg/dL (8.5-10.5); Carbon Dioxide 25 mmol/L (22-29); Chloride 88 mmol/L (98-107); Glomerular Filtration Rate 133.2 mL/min (90-130); Glucose 94 mg/dL (65-115); Osmolality Calculated 259 mOsm/kg (285-295); Sodium 126 mmol/L (136-145)
[2024-10-18 07:42] LABS: Creatinine Clr Calc Pharmacy 92.8472
[2024-10-18 07:43] LABS: Anion Gap 16.3 (5-19); Potassium 3.3 mmol/L (3.5-5.1)
[2024-10-18] MEDS: multivitamin therapeutic Tablet 1 TAB PO (09:22)
[2024-10-18] MEDS: metoprolol tartrate 50 mg Tablet PO (09:22)
[2024-10-18] MEDS: folic acid 1 mg Tablet PO (09:23)
[2024-10-18] MEDS: thiamine 100 mg Tablet PO (09:23)
[2024-10-18] MEDS: atorvastatin 40 mg Tablet PO (09:23)
[2024-10-18] MEDS: allopurinol 300 mg Tablet PO (09:23)
[2024-10-18] MEDS: tamsulosin 0.4 mg Capsule PO (09:24)
[2024-10-18] MEDS: dextrose 5% 1,000 ML 60 ML IV (09:28)
--- NOTE | 2024-10-18 11:18 | PM.PN ---
Subjective Subjective: feels better. wants to go home. he does drink significant amounbt of ETOH at home Medications: Reviewed: Yes Medication Review Details: Current Medications Acetaminophen (Acetaminophen 325 Mg Tablet) 650 mg PO Q6H PRN PRN Reason: Mild/Mod Pain Or Temp >/= 101 Hydrocodone Bitart/Acetaminophen (Hydrocodone-Acetaminophen 5-325 Mg Tablet) 1 tab PO Q4H PRN PRN Reason: moderate pain Allopurinol (Allopurinol 300 Mg Tablet) 300 mg PO DAILY [facility] Last Admin: 10/18/24 09:23 Dose: 300 mg Atorvastatin Calcium (Atorvastatin 40 Mg Tablet) 40 mg PO DAILY [facility] Last Admin: 10/18/24 09:23 Dose: 40 mg Benzonatate (Benzonatate 100 Mg Capsule) 200 mg PO TID PRN PRN Reason: COUGH Calcium Carbonate (Calcium Carbonate 500 Mg Chew Tablet) 1,000 mg PO Q4H PRN PRN Reason: DYSPEPSI Ceftriaxone Sodium (Ceftriaxone 1,000 Mg Sdv) 1,000 mg IVP Q24H [facility]; Protocol Last Admin: 10/18/24 01:06 Dose: 1,000 mg Enoxaparin Sodium (Enoxaparin 40 Mg/0.4 Ml Syringe) 40 mg SUBCUT Q24H [facility] Last Admin: 10/18/24 01:07 Dose: 40 mg Folic Acid (Folic Acid 1 Mg Tablet) 1 mg PO DAILY [facility] Last Admin: 10/18/24 09:23 Dose: 1 mg Guaifenesin (Guaifenesin 600 Mg Tablet) 1,200 mg PO BID PRN PRN Reason: congestion Hydralazine HCl (Hydralazine 20 Mg/Ml Inj 1 Ml) 10 mg IVP Q4H PRN PRN Reason: SBP>180mmHg or DBP>110mmHG Hydralazine HCl (Hydralazine 20 Mg/Ml Inj 1 Ml) 10 mg IVP Q4H PRN PRN Reason: SBP>180mmHg or DBP>110mmHG Azithromycin 500 mg/ Sodium (Chloride) 250 mls @ 250 mls/hr IV Q24H [facility]; Protocol Last Infusion: 10/18/24 02:33 Dose: Infused Dextrose (D5w) 1,000 mls @ 60 mls/hr IV .[id number] [facility] Stop: 10/18/24 13:30 Last Admin: 10/18/24 09:28 Dose: 60 mls/hr Lorazepam (Lorazepam 2 Mg Tablet) 2 mg PO Q4H PRN; Protocol PRN Reason: WITHDRAWAL Lorazepam (Lorazepam 2 Mg/Ml Inj 1 Ml) 2 mg IM Q4H PRN; Protocol PRN Reason: ALCOHOL WITHDRAWAL Lorazepam (Lorazepam 2 Mg/Ml Inj 1 Ml) 2 mg IVP PRN PRN; Protocol PRN Reason: WITHDRAWAL Metoprolol Tartrate (Metoprolol Tartrate 50 Mg Tablet) 50 mg PO DAILY [facility] Last Admin: 10/18/24 09:22 Dose: 50 mg Multivitamins Therapeutic (Multivitamin Therapeutic Tablet) 1 tab PO DAILY [facility] Last Admin: 10/18/24 09:22 Dose: 1 tab Ondansetron HCl (Ondansetron 2 Mg/Ml Sdv 2 Ml) 4 mg IVP Q8H PRN PRN Reason: vomiting, or N/V if npo Pantoprazole Sodium (Pantoprazole 40 Mg Sdv) 40 mg IVP Q12H [facility] Last Admin: 10/18/24 03:25 Dose: 40 mg Tamsulosin HCl (Tamsulosin 0.4 Mg Capsule) 0.4 mg PO DAILY [facility] Last Admin: 10/18/24 09:24 Dose: 0.4 mg Thiamine Mononitrate (Thiamine 100 Mg Tablet) 100 mg PO DAILY [facility] Last Admin: 10/18/24 09:23 Dose: 100 mg Vitals/I&O/Wt Last Vital Signs Temp 97.9 F 10/18/24 08:00 Pulse 76 10/18/24 08:00 Resp 18 10/18/24 08:00 BP 129/60 10/18/24 08:00 Pulse Ox 93 10/18/24 08:00 O2 Del Method Nasal Cannula 10/18/24 08:00 O2 Flow Rate 2 10/17/24 08:45 10/17/24 10/18/24 10/18/24 22:59 06:59 14:59 Intake Total 240 / 240 535.833 / 775.833 0 / 0 Output Total 350 / 350 650 / 1000 375 / 375 Balance -110 / -110 -114.167 / -224.167 -375 / -375 Weight last 48 hrs Weight 95.3 kg Weight 98.43 kg Weight 98.5 kg Weight 99.79 kg Physical Exam Narrative: obese man in bed, NARD vs noted. heent- nc/at, eomi neck supple lungs clear heart irreg, + s1, s2 abd soft, nd, + bs ext 1+ b/l edema neuro a,a, o x 3 Urinary Catheter Management: Hewitt: Cath Placed During This Visit: yes Reason for Continuing Indwelling Catheter: Acute Urinary Retention or Obstruction Urinary Catheter Date of Insertion: 10/17/24 Urinary Catheter Time of Insertion: 02:14 Data 10/17/24 09:46 10/18/24 07:00 Micro: Microbiology 10/17/24 02:30 Bacterial Antigens - Final Urine,Clean Catch 10/17/24 04:06 Occult Blood (FIT) - Final Stool Routine Collection A&P Assessment and plan (1) Hyponatremia: 69-year-old man history of hyperlipidemia, EtOH use, hypertension, BPH. Patient presented with weakness and electrolyte abnormalities 1. Hyponatremia with low urine sodium. Patient was on thiazide Lasix SSRI and trazodone and drink significant amount of alcohol. Would hold diuretics. Will continue IV fluid replacement. With free water restrict. Etiology of his hyponatremia is likely more related to his beer drinking the medications as his urine sodium is low.Continue slow replacement of serum sodium and monitor chemistries every 6-8 hours. 2, replace k and mag monitor Electrolytes recommend alcoholics anonymous on discharge pt consented to telehealth seen and examined using A/V equipment and the aid of a nurse Plan see maggie PDMP PDMP Reviewed: Not Reviewed Attestations Medical Necessity Statement*: electrolyte abnormalities Time Spent in Patient Care: 16 - 35 minutes (>than 50% of time spent in counselling and/or direct pt care on unit). Coding Level of Care Code Acute Code for Chg Fwd Diagnoses Hyponatremia E87.1
[2024-10-18] MEDS: potassium chloride ER 20 mEq Tablet 40 MEQ PO (12:04)
[2024-10-18] MEDS: magnesium sulfate premix 1 GM/100 ML PIGGYBACK IV (12:05)
[2024-10-18] MEDS: sodium chloride 0.9% 1,000 ML 100 ML IV ×2 (12:05→22:06)
[2024-10-18 12:18] LABS: Anion Gap 14.3 (5-19); Blood Urea Nitrogen 7 mg/dL (8-23); Calcium 8.5 mg/dL (8.5-10.5); Carbon Dioxide 27 mmol/L (22-29); Chloride 89 mmol/L (98-107); Creatinine Clr Calc Pharmacy 92.8472; Glomerular Filtration Rate 164.4 mL/min (90-130); Glucose 108 mg/dL (65-115); Osmolality Calculated 263 mOsm/kg (285-295); Potassium 3.3 mmol/L (3.5-5.1); Sodium 127 mmol/L (136-145)
--- NOTE | 2024-10-18 16:36 | PM.PN ---
Subjective Subjective: 69-year-old with a past medical history of chronic back pain, insomnia, benign prostatic hyperplasia, hypertension, hyperlipidemia, cannabis use, and alcoholism who presented to the hospital with generalized weakness. He also noted shortness of breath for a few days prior to arrival, but denied any chest discomfort, recent fever, chills, nausea, or vomiting. Initial evaluation in the ER on 10/16/2024 revealed: - Laboratory Findings: WBC 16.2, hemoglobin 14, hematocrit 37, platelets 416, sodium 114, potassium 3.2, chloride 71, bicarbonate 23, BUN 10, creatinine 0.7, magnesium 1.5, AST/ALT within normal limits, alkaline phosphatase 148, troponin T 20 (18 at 120 minutes), negative ETOH level, influenza A/COVID-19/RSV not detected. - Imaging Studies: Chest x-ray showed probable mild cardiomegaly without overt signs of heart failure exacerbation and a mild left basilar opacity (atelectasis vs pneumonitis). He was started on ceftriaxone and azithromycin for presumed pneumonia and given a normal saline bolus, after which his sodium improved to 119. Nephrology was consulted. 10/18 Wanting to go home today. No fever, chills, nausea or vomiting. Vitals/I&O/Wt Last Vital Signs Temp 98.1 F 10/18/24 12:00 Pulse 75 10/18/24 15:11 Resp 18 10/18/24 12:00 BP 132/81 10/18/24 12:00 Pulse Ox 95 10/18/24 12:00 O2 Del Method Nasal Cannula 10/18/24 12:00 O2 Flow Rate 2 10/17/24 08:45 10/18/24 10/18/24 10/18/24 06:59 14:59 22:59 Intake Total 535.833 / 775.833 100 / 100 Output Total 650 / 1000 375 / 375 Balance -114.167 / -224.167 -275 / -275 Weight last 48 hrs Weight 95.3 kg Weight 98.43 kg Weight 98.5 kg Weight 99.79 kg Physical Exam Narrative: General: Patient is awake. Head: Normocephalic. Atraumatic. EOM intact. Dry mucous membranes. Neck: No JVD. Cardiovascular: No gallops. No murmurs. Tachycardic. Lungs: Breath sounds diminished bilateral bases, no use of accessory muscles, no crackles or wheezes. Skin: No jaundice. No rashes. Abdomen: Normal bowel sounds, abdomen soft and nontender. Extremities: No cyanosis or clubbing. Musculoskeletal: No swollen or erythematous joints. Neurological: Moves all 4 extremities. No myoclonus. Urinary Catheter Management: Hewitt: Cath Placed During This Visit: yes Reason for Continuing Indwelling Catheter: Acute Urinary Retention or Obstruction Urinary Catheter Date of Insertion: 10/17/24 Urinary Catheter Time of Insertion: 02:14 Data 10/17/24 09:46 10/18/24 18:08 Micro: Microbiology 10/17/24 02:30 Bacterial Antigens - Final Urine,Clean Catch A&P Assessment and plan (1) Acute hyponatremia: (2) Severe dehydration: (3) Hypokalemia: (4) Alcohol use disorder, moderate, dependence: (5) Abnormal chest x-ray: (6) Hypertension: Qualifiers: Hypertension type: primary hypertension Qualified Code(s): I10 - Essential (primary) hypertension (7) Gout: Qualifiers: Chronicity: chronic Gout etiology: drug-induced Gout site: ankle Laterality: right Presence of tophus: without tophus Qualified Code(s): M1A.2710 - Drug-induced chronic gout, right ankle and foot, without tophus (tophi) (8) Benign prostate hyperplasia: Plan Hyponatremia - Presenting sodium of 114, -> 119-> 125, rapid correction. - started on D5w per nephrology Plan 1.. Fluid Restriction 2. BMP q4hr 3. Nephrology manageing Pneumonia - Chest x-ray findings suggestive of left basilar pneumonitis. Plan: 1. Continue ceftriaxone and azithromycin. 2. Follow up on culture 3. Change to oral at discharge 4. Plan for 7 day course Alcoholism - Long stading history to alcohol abuse 1. On CIWA procotol 2. Seizure precautions. Chronic Medical Conditions - Chronic back pain, insomnia, benign prostatic hyperplasia, hypertension, hyperlipidemia. Plan: 1. continue current management PDMP PDMP Reviewed: Not Reviewed Attestations Medical Necessity Statement*: Patient presents with severe life-threatening hypotension among several other electrolyte imbalances with expected hospitalization to cross 2 midnights for further workup, intensive care, serial labs, IV fluids, IV antibiotics, and treatment. 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
[2024-10-18 18:37] LABS: Anion Gap 11.7 (5-19); Blood Urea Nitrogen 9 mg/dL (8-23); Calcium 8.2 mg/dL (8.5-10.5); Carbon Dioxide 27 mmol/L (22-29); Chloride 91 mmol/L (98-107); Creatinine Clr Calc Pharmacy 92.8472; Glomerular Filtration Rate 111.5 mL/min (90-130); Glucose 160 mg/dL (65-115); Osmolality Calculated 264 mOsm/kg (285-295); Potassium 3.7 mmol/L (3.5-5.1); Sodium 126 mmol/L (136-145)
[2024-10-19] VITALS: BP 136/81; PULSE 77; RESP 18; TEMP 36.8; O2SAT 96
[2024-10-19 01:03] LABS: Anion Gap 14.6 (5-19); Blood Urea Nitrogen 8 mg/dL (8-23); Calcium 8.3 mg/dL (8.5-10.5); Carbon Dioxide 26 mmol/L (22-29); Chloride 92 mmol/L (98-107); Creatinine Clr Calc Pharmacy 92.8472; Glomerular Filtration Rate 133.2 mL/min (90-130); Glucose 105 mg/dL (65-115); Osmolality Calculated 267 mOsm/kg (285-295); Potassium 3.6 mmol/L (3.5-5.1); Sodium 129 mmol/L (136-145)
[2024-10-19] MEDS: cefTRIAXone 1,000 mg SDV 1000 MG IVP (01:06)
[2024-10-19] MEDS: enoxaparin 40 mg/0.4 mL Syringe SUBCUT (01:06)
[2024-10-19] MEDS: AZITHROMYCIN ADD-Vantage 500 MG in 0.9% NaCl ADD-Vantage 250 ML 250 MG IV (01:06)
[2024-10-19 04:00] VITALS: BP 142/84; PULSE 78; RESP 18; TEMP 36.8; O2SAT 95
[2024-10-19] MEDS: pantoprazole 40 mg SDV IVP (04:09)
[2024-10-19 04:51] LABS: Alanine Aminotransferase 12 U/L (0-41); Albumin Level 3.2 g/dL (3.5-5.2); Alkaline Phosphatase 98 U/L (40-130); Anion Gap 12.5 (5-19); Aspartate Amino Transferase 12 U/L (0-40); Blood Urea Nitrogen 7 mg/dL (8-23); Calcium 7.9 mg/dL (8.5-10.5); Carbon Dioxide 26 mmol/L (22-29); Chloride 96 mmol/L (98-107); Creatinine Clr Calc Pharmacy 92.8472; Globulin 2.3 g/dL (1.3-4.6); Glomerular Filtration Rate 133.2 mL/min (90-130); Glucose 91 mg/dL (65-115); Magnesium 2.1 mg/dL (1.7-2.3); Osmolality Calculated 270 mOsm/kg (285-295); Phosphorus 2.2 mg/dL (2.5-4.5); Potassium 3.5 mmol/L (3.5-5.1); Sodium 131 mmol/L (136-145); Total Bilirubin 0.5 mg/dL (0.15-1.2); Total Protein 5.5 g/dL (6.6-8.7)
[2024-10-19 06:00] VITALS: BMI 35.4
[2024-10-19 07:54] VITALS: BP 146/77; PULSE 84; RESP 17; TEMP 36.7; O2SAT 91
[2024-10-19] MEDS: sodium chloride 0.9% 1,000 ML 100 ML IV (08:01)
[2024-10-19] MEDS: multivitamin therapeutic Tablet 1 TAB PO (08:02)
[2024-10-19] MEDS: tamsulosin 0.4 mg Capsule PO (08:02)
[2024-10-19] MEDS: folic acid 1 mg Tablet PO (08:02)
[2024-10-19] MEDS: thiamine 100 mg Tablet PO (08:02)
[2024-10-19] MEDS: metoprolol tartrate 50 mg Tablet PO (08:02)
[2024-10-19] MEDS: atorvastatin 40 mg Tablet PO (08:02)
[2024-10-19] MEDS: allopurinol 300 mg Tablet PO (08:03)
--- NOTE | 2024-10-19 08:19 | PM.PN ---
Subjective Subjective: feels better. wants to go home. no n/v/f/c/marcus/d Medications: Reviewed: Yes Medication Review Details: Current Medications Acetaminophen (Acetaminophen 325 Mg Tablet) 650 mg PO Q6H PRN PRN Reason: Mild/Mod Pain Or Temp >/= 101 Hydrocodone Bitart/Acetaminophen (Hydrocodone-Acetaminophen 5-325 Mg Tablet) 1 tab PO Q4H PRN PRN Reason: moderate pain Allopurinol (Allopurinol 300 Mg Tablet) 300 mg PO DAILY [facility] Last Admin: 10/19/24 08:03 Dose: 300 mg Atorvastatin Calcium (Atorvastatin 40 Mg Tablet) 40 mg PO DAILY [facility] Last Admin: 10/19/24 08:02 Dose: 40 mg Benzonatate (Benzonatate 100 Mg Capsule) 200 mg PO TID PRN PRN Reason: COUGH Calcium Carbonate (Calcium Carbonate 500 Mg Chew Tablet) 1,000 mg PO Q4H PRN PRN Reason: DYSPEPSI Ceftriaxone Sodium (Ceftriaxone 1,000 Mg Sdv) 1,000 mg IVP Q24H [facility]; Protocol Last Admin: 10/19/24 01:06 Dose: 1,000 mg Enoxaparin Sodium (Enoxaparin 40 Mg/0.4 Ml Syringe) 40 mg SUBCUT Q24H [facility] Last Admin: 10/19/24 01:06 Dose: 40 mg Folic Acid (Folic Acid 1 Mg Tablet) 1 mg PO DAILY [facility] Last Admin: 10/19/24 08:02 Dose: 1 mg Guaifenesin (Guaifenesin 600 Mg Tablet) 1,200 mg PO BID PRN PRN Reason: congestion Hydralazine HCl (Hydralazine 20 Mg/Ml Inj 1 Ml) 10 mg IVP Q4H PRN PRN Reason: SBP>180mmHg or DBP>110mmHG Hydralazine HCl (Hydralazine 20 Mg/Ml Inj 1 Ml) 10 mg IVP Q4H PRN PRN Reason: SBP>180mmHg or DBP>110mmHG Azithromycin 500 mg/ Sodium (Chloride) 250 mls @ 250 mls/hr IV Q24H [facility]; Protocol Last Infusion: 10/19/24 02:15 Dose: Infused Sodium Chloride (Sodium Chloride 0.9%) 1,000 mls @ 100 mls/hr IV .Q10H [facility] Last Admin: 10/19/24 08:01 Dose: 100 mls/hr Lorazepam (Lorazepam 2 Mg Tablet) 2 mg PO Q4H PRN; Protocol PRN Reason: WITHDRAWAL Lorazepam (Lorazepam 2 Mg/Ml Inj 1 Ml) 2 mg IM Q4H PRN; Protocol PRN Reason: ALCOHOL WITHDRAWAL Lorazepam (Lorazepam 2 Mg/Ml Inj 1 Ml) 2 mg IVP PRN PRN; Protocol PRN Reason: WITHDRAWAL Metoprolol Tartrate (Metoprolol Tartrate 50 Mg Tablet) 50 mg PO DAILY [facility] Last Admin: 10/19/24 08:02 Dose: 50 mg Multivitamins Therapeutic (Multivitamin Therapeutic Tablet) 1 tab PO DAILY [facility] Last Admin: 10/19/24 08:02 Dose: 1 tab Ondansetron HCl (Ondansetron 2 Mg/Ml Sdv 2 Ml) 4 mg IVP Q8H PRN PRN Reason: vomiting, or N/V if npo Pantoprazole Sodium (Pantoprazole 40 Mg Sdv) 40 mg IVP Q12H [facility] Last Admin: 10/19/24 04:09 Dose: 40 mg Tamsulosin HCl (Tamsulosin 0.4 Mg Capsule) 0.4 mg PO DAILY [facility] Last Admin: 10/19/24 08:02 Dose: 0.4 mg Thiamine Mononitrate (Thiamine 100 Mg Tablet) 100 mg PO DAILY [facility] Last Admin: 10/19/24 08:02 Dose: 100 mg Vitals/I&O/Wt Last Vital Signs Temp 98.1 F 10/19/24 07:54 Pulse 84 10/19/24 07:54 Resp 17 10/19/24 07:54 BP 146/77 10/19/24 07:54 Pulse Ox 91 10/19/24 07:54 O2 Del Method Room Air 10/19/24 07:54 O2 Flow Rate 0.5 10/19/24 00:00 10/18/24 10/19/24 10/19/24 22:59 06:59 14:59 Intake Total 3914.167 / 4014.167 1210 / 5224.167 1591.667 / 1591.667 Output Total 350 / 725 200 / 925 Balance 3564.167 / 3289.167 1010 / 4299.167 1591.667 / 1591.667 Weight last 48 hrs Weight 99.422 kg Weight 95.3 kg Physical Exam Narrative: obese man in bed, NARD vs noted. heent- nc/at, eomi neck supple lungs clear heart irreg, + s1, s2 abd soft, nd, + bs ext no leg edema neuro a,a, o x 3 Urinary Catheter Management: Hewitt: Cath Placed During This Visit: yes Reason for Continuing Indwelling Catheter: Acute Urinary Retention or Obstruction Urinary Catheter Date of Insertion: 10/17/24 Urinary Catheter Time of Insertion: 02:14 Data 10/17/24 09:46 10/19/24 04:14 A&P Assessment and plan (1) Hyponatremia: 69-year-old man history of hyperlipidemia, EtOH use, hypertension, BPH. Patient presented with weakness and electrolyte abnormalities 1. Hyponatremia with low urine sodium. Patient was on thiazide Lasix SSRI and trazodone and drink significant amount of alcohol. Would hold diuretics. -na improved to 131 can d/c ivf and free water restrict. Etiology of his hyponatremia is likely more related to his beer drinking the medications as his urine sodium is low. -check chemistreis weekly as outpt 2, replace k, phos, and mag as needed. recommend alcoholics anonymous on discharge pt consented to telehealth seen and examined using A/V equipment and the aid of a nurse Plan see maggie PDMP PDMP Reviewed: Not Reviewed Attestations Medical Necessity Statement*: improving hyponatremia Time Spent in Patient Care: 16 - 35 minutes (>than 50% of time spent in counselling and/or direct pt care on unit). Coding Level of Care Code Acute Code for [facility] Fwd Diagnoses Hyponatremia E87.1
--- NOTE | 2024-10-19 09:01 | PC.CHAP ---
Pastoral Care Encounter/Spiritual Assessment Type of Contact [] Declined stump shooter visit [] Patient/Family/Request visit [] Outpatient visit [] Follow-up visit [] Physician referral [] Code/Alert []x Routine visit [] Staff referral [] Actively dying [x] Patient sleeping [] Family support [] [] Out of room [] Palliative care [] [] Receiving care in room [] Pre-surgical visit [] Trauma [] Long length of stay [] ICU visit [] Other: Relational/Emotional Strength [] Patient feels connected with others/family/visitors/staff [] Distress [] Loneliness/isolation [] Abandonment Spirituality of Patient [] Person of Courtney [] Attends Anabaptist of their Courtney [] Believes in Prayer [] Reads Bible or Temple materials [] There are Spiritual issues to be addressed [employer] Interventions [x] Prayer [] Active listening [] Non-anxious presence [] Spiritual/emotional support [] Crisis/trauma care [] Spiritual counseling [] Bereavement support [] Provided bereavement packet [] Provided Bible/devotional materials [] Provided toy/stuffed animal, coloring book to patient or family member [] Provided Communion [] Anointing/Dougherty [] Salvation [] Completed spiritual assessment [] Other: Impact on Illness or Injury [] Angry [] Fearful [] Anxious [] Often cries [] Exhaustion [] Unable to work [] Unable to attend evangelical [] Unable to walk/stand [] Unable to read [] Unable to drive [] Unable to eat/drink [] Unable to sleep [] Unable to be with family [] Patient intubated [] Other: Summary Time spent with patient
--- NOTE | 2024-10-19 11:58 | PC.SOCIAL ---
IMM Updated Updated pt on IMM. No questions voiced. Provided pt a copy. Initialed, dated, & timed a copy & placed in chart.
[2024-10-19 12:00] VITALS: BP 131/81; PULSE 66; RESP 18; TEMP 36.7; O2SAT 93
[2024-10-19 13:19] VITALS: BP 131/81; PULSE 66; RESP 16; TEMP 36.7; O2SAT 93
[2024-10-21 10:00] LABS: Osmolality Urine 335 mOsm/kg (50-1200)
--- NOTE | 2024-10-21 17:29 | P.DS_ITS ---
Discharge Providers Date of Admission: 10/17/24 00:02 Date of Discharge: October 19, 2024 Attending Provider at Admission: Vernon Kendall MD Attending Provider at Discharge: Jonelle Foster Consults: Nephrology Primary Care Provider: Pavan Alcantar MD Diagnoses at Discharge Discharge Diagnosis (1) Hyponatremia: Status: Acute Reason for Visit Reason for Visit: SOB Hospital Course Hospital Course 69-year-old male with a past medical history of chronic back pain, insomnia, benign prostatic hyperplasia, hypertension, hyperlipidemia, cannabis use, and alcoholism who presented with generalized weakness and shortness of breath for a few days prior to arrival. He denied any chest discomfort, recent fever, chills, nausea, or vomiting. On admission, the patient was found to have WBC 16.2, hemoglobin 14, hematocrit 37, platelets 416, sodium 114, potassium 3.2, chloride 71, bicarbonate 23, BUN 10, creatinine 0.7, magnesium 1.5, AST/ALT within normal limits, alkaline phosphatase 148, troponin T 20 (18 at 120 minutes), negative ETOH level, influenza A/COVID-19/RSV not detected. Chest x-ray showed probable mild cardiomegaly without overt signs of heart failure exacerbation and a mild left basilar opacity (atelectasis vs pneumonitis). During his hospitalization, the patient was admitted on 10/16/2024 and discharged on 10/19/2024. He was started on ceftriaxone and azithromycin in the ER for presumed pneumonia. His presenting sodium of 114 improved to 119 with normal saline bolus, then rapidly corrected to 125. He was started on D5W per nephrology consultation. Cultures were negative. Antibiotics were changed to oral ceftin at discharge with a plan to continue for a total 7 day course. The patient has a long standing history of alcohol abuse but showed no signs of withdrawal during admission. His chronic medical conditions including chronic back pain, insomnia, benign prostatic hyperplasia, hypertension, and hyperlipidemia were continued on current management. At the time of discharge, the patient's sodium level improved to 131. He noted no fever, chills, nausea or vomiting. The patient was discharged with instructions to continue fluid restriction as nephrology is managing his hyponatremia. Physical Exam Narrative: General: Patient is awake. Head: Normocephalic. Atraumatic. EOM intact. Dry mucous membranes. Neck: No JVD. Cardiovascular: No gallops. No murmurs. Tachycardic. Lungs: Breath sounds diminished bilateral bases, no use of accessory muscles, no crackles or wheezes. Skin: No jaundice. No rashes. Abdomen: Normal bowel sounds, abdomen soft and nontender. Extremities: No cyanosis or clubbing. Musculoskeletal: No swollen or erythematous joints. Neurological: Moves all 4 extremities. No myoclonus. Urinary Catheter Management: Hewitt: Cath Placed During This Visit: yes, but has since been removed by the nurse Reason for Continuing Indwelling Catheter: Decision to DC Catheter Urinary Catheter Date of Insertion: 10/17/24 Urinary Catheter Time of Insertion: 02:14 Date Urinary Catheter Removed: 10/19/24 Time Urinary Catheter Discontinued: 11:57 Discharge Data Studies Completed and Pending Completed Studies During Hospitalization Category Date Time Status XR chest 1V portable [id number] Stat Exams 10/16/24 21:10 Completed Radiology Impressions Chest X-Ray 10/16/24 21:10 IMPRESSION: Probable mild cardiomegaly without overt CHF. Mild left basilar opacity due to atelectasis versus pneumonitis in the appropriate clinical setting. Laboratory Results WBC 13.12 10^3/uL (3.29-11.43) H 10/17/24 04:36 RBC 3.89 10^6/uL (3.85-5.65) 10/17/24 04:36 Hgb 13.20 g/dL (11.27-16.99) 10/17/24 09:46 Hct 36.1 % (37-53) L 10/17/24 09:46 MCV 87.7 fl (82-101) 10/17/24 04:36 MCH 32.1 pg (27-33) 10/17/24 04:36 MCHC 36.7 g/dL (30-55) 10/17/24 04:36 RDW 12.5 % (12.1-15.1) 10/17/24 04:36 Plt Count 310 10^3/cmm (157-399) 10/17/24 04:36 MPV 9.2 fL (7.4-10.4) 10/17/24 04:36 Neut % (Auto) 84.6 % 10/17/24 04:36 Lymph % (Auto) 6.3 % 10/17/24 04:36 Crowley % (Auto) 7.4 % 10/17/24 04:36 Eos % (Auto) 1.1 % 10/17/24 04:36 Baso % (Auto) 0.2 % 10/17/24 04:36 Neut # (Auto) 11.10 10^3/uL (1.8-7.7) H 10/17/24 04:36 Lymph # (Auto) 0.8 10^3/uL (0.8-4.8) 10/17/24 04:36 Crowley # (Auto) 1.0 10^3/uL (0.2-0.9) H 10/17/24 04:36 Eos # (Auto) 0.2 10^3/uL (0.0-0.8) 10/17/24 04:36 Baso # (Auto) 0.0 10^3/uL (0.0-0.1) 10/17/24 04:36 Nucleated RBC % (auto) 0 % 10/17/24 04:36 Nucleated RBCs # 0.0 /100WBC 10/17/24 04:36 D-Dimer 0.28 ug/mLFEU (0-0.59) 10/16/24 21:16 Sodium 131 mmol/L (136-145) L 10/19/24 04:14 Potassium 3.5 mmol/L (3.5-5.1) 10/19/24 04:14 Chloride 96 mmol/L (98-107) L 10/19/24 04:14 Carbon Dioxide 26 mmol/L (22-29) 10/19/24 04:14 Anion Gap 12.5 (5-19) 10/19/24 04:14 BUN 7 mg/dL (8-23) L 10/19/24 04:14 Creatinine 0.6 mg/dL (0.7-1.2) L 10/19/24 04:14 GFR Calculation 133.2 mL/min (90-130) H 10/19/24 04:14 Glucose 91 mg/dL (65-115) 10/19/24 04:14 Calculated Osmolality 270 mOsm/kg (285-295) L 10/19/24 04:14 Calcium 7.9 mg/dL (8.5-10.5) L 10/19/24 04:14 Phosphorus 2.2 mg/dL (2.5-4.5) L 10/19/24 04:14 Magnesium 2.1 mg/dL (1.7-2.3) 10/19/24 04:14 Total Bilirubin 0.5 mg/dL (0.15-1.2) 10/19/24 04:14 Direct Bilirubin 0.30 mg/dL (0.00-0.30) 10/17/24 04:36 AST 12 U/L (0-40) 10/19/24 04:14 ALT 12 U/L (0-41) 10/19/24 04:14 Alkaline Phosphatase 98 U/L (40-130) 10/19/24 04:14 Troponin T Baseline 20 ng/L (0-15) H 10/16/24 21:16 Troponin T 120 Minute 18.18 ng/L (0-15) H 10/16/24 23:14 Delta Troponin T -1.82 ABS# (0-10) L 10/16/24 23:14 C-Reactive Protein 18.9 mg/L (0.0-4.9) H 10/16/24 23:14 NT-Pro-B Natriuret Pep 297 pg/mL (0-125) H 10/16/24 21:16 Total Protein 5.5 g/dL (6.6-8.7) L 10/19/24 04:14 Albumin 3.2 g/dL (3.5-5.2) L 10/19/24 04:14 Globulin 2.3 g/dL (1.3-4.6) 10/19/24 04:14 Procalcitonin 0.10 ng/mL (0-0.5) 10/16/24 21:16 TSH 2.01 uIU/mL (0.27-4.20) 10/17/24 04:36 Urine Osmolality 335 mOsm/kg (50-1200) 10/17/24 15:03 Ur Random Sodium 20 mmol/L 10/17/24 02:30 Ur Random Potassium 13 mmol/L 10/17/24 02:30 Ur Random Chloride 12 mmol/L 10/17/24 02:30 Urine Creatinine 25 mg/dL (39-259) L 10/17/24 02:30 Ethyl Alcohol < 10 mg/dL (0-10) 10/16/24 21:16 Coronavirus (PCR) Negative (Negative) 10/16/24 21:21 Influenza A (PCR) Negative (Negative) 10/16/24 21:21 Influenza Type B (PCR) Negative (Negative) 10/16/24 21:21 RSV (PCR) Negative (Negative) 10/16/24 21:21 Vitals Last Vital Signs Temp 98.0 F 10/19/24 13:19 Pulse 66 10/19/24 13:19 Resp 16 10/19/24 13:19 BP 131/81 10/19/24 13:19 Pulse Ox 93 10/19/24 13:19 O2 Del Method Room Air 10/19/24 12:00 O2 Flow Rate 0.5 10/19/24 00:00 Discharge Plan Discharge Patient Disposition: Home Condition: Stable Prescriptions: New levofloxacin 500 mg tablet 500 mg PO DAILY 4 Days Qty: 4 0RF Continued paroxetine HCl 40 mg tablet 40 mg PO DAILY Qty: 90 1RF trazodone 50 mg tablet 50 mg PO DAILY Qty: 90 1RF atorvastatin [Lipitor] 40 mg tablet 40 mg PO DAILY Qty: 90 1RF tamsulosin 0.4 mg capsule 0.4 mg PO DAILY Qty: 90 1RF allopurinol 300 mg tablet 300 mg PO DAILY Qty: 90 1RF metoprolol tartrate [Lopressor] 50 mg tablet 50 mg PO DAILY Qty: 90 1RF amlodipine [Norvasc] 10 mg tablet 10 mg PO DAILY Qty: 90 1RF Discontinued potassium chloride 20 mEq tablet extended release 20 meq PO DAILY Qty: 90 1RF furosemide [Lasix] 40 mg tablet 40 mg PO QAM Qty: 90 1RF hydrochlorothiazide 25 mg tablet 25 mg PO QAM Qty: 90 1RF Discharge Orders: Discharge Order (Routine); Ordered 10/19/24 Ordered By: Jonelle Foster Other Ambulatory Orders: Basic Metabolic Panel (Routine) Timeframe: 1 Week Facility: [facility] - Location: Lab - Main Lab Ordered By: Jonelle Foster Referrals: Pavan Alcantar MD [Primary Care Provider] - 11/24/24 9:30 am Discharge Diet: Usual diet Discharge Activity: Increase activity as tolerated Patient Instructions: Dehydration - Adult, Levofloxacin (By mouth), Pneumonitis (DC), Opioid Safety Discharge Attestations Time Spent in Discharge Care*: greater than 30 min Status at Discharge: Cognitive status at discharge: cognitively intact , Behavioral status at discharge: cooperative , Functional status at discharge: independent ambulation , Overall status at discharge: patient is back to baseline Quality Metrics Clinical Quality Measures [ No reported AMI, CVA or VTE this stay] Coding Level of Care Code Acute Code for [facility] Fwd Diagnoses Hyponatremia E87.1
== END 2024-10-19 12:58 | disposition home or self-care (01) | DRG 640 ==
LOC: ER 23:26 → ICU 10-17 00:02 → MEDSURG 10-17 16:07
PROVIDERS: Hospitalist; Internal Medicine Nephrology; Admitting Provider Internal Medicine; Emergency Provider Emergency Medicine; Family Provider Electrodiagnostic Medicine; PCP Family Medicine; Visit Provider Hospitalist
DX: E87.1 Hypo-osmolality and hyponatremia (principal); J18.9 Pneumonia, unspecified organism; G47.00 Insomnia, unspecified; N40.0 Benign prostatic hyperplasia without lower urinary tract symptoms; E78.5 Hyperlipidemia, unspecified; F10.20 Alcohol dependence, uncomplicated; G89.29 Other chronic pain; M54.9 Dorsalgia, unspecified; F41.9 Anxiety disorder, unspecified; F32.A Depression, unspecified; I10 Essential (primary) hypertension; E86.0 Dehydration; E87.6 Hypokalemia; I95.9 Hypotension, unspecified; M10.9 Gout, unspecified
CPT/HCPCS: 36415; 51702; 71045; 80048; 80053; 80076; 80307; 82274; 82436; 82575; 83735; 83880; 83935; 84100; 84133; 84145; 84295; 84300; 84443; 84484; 85014; 85018; 85025; 85378; 86140; 86403; 87637; 93005; 96372; 99285; J0456; J0696; J1650; J2470; J3475; J7030; J7050; J7070; Q3014

== ENCOUNTER → 2024-11-24 10:13 | Outpatient (BNVA) | payer MEDICARE, OTHER, SELFPAY | PROVIDERS: Family Provider Electrodiagnostic Medicine; PCP Family Medicine; Visit Provider Family Medicine | DX: E87.1 Hypo-osmolality and hyponatremia (principal) | CPT/HCPCS: 80048 ==

== ENCOUNTER → 2024-12-07 11:42 | Outpatient (BNVA) | payer MEDICARE, SELFPAY | PROVIDERS: Family Provider Electrodiagnostic Medicine; PCP Family Medicine; Visit Provider Family Medicine | DX: I10 Essential (primary) hypertension (principal) | CPT/HCPCS: 80053 ==